=== PATIENT | female | born 1950 | race African-American/Black ===

== ENCOUNTER → 2020-01-28 | Outpatient (CLI) | payer OTHER | LOC: CAT 10:03 | DX: Z13.6 Encounter for screening for cardiovascular disorders (principal); E78.00 Pure hypercholesterolemia, unspecified; I25.10 Atherosclerotic heart disease of native coronary artery without angina pectoris ==

== ENCOUNTER → 2020-04-14 | Outpatient (CLI) | payer OTHER | LOC: BC 12:56 | DX: Z12.31 Encounter for screening mammogram for malignant neoplasm of breast (principal) ==

== ENCOUNTER → 2020-05-05 | Outpatient (CLI) | payer OTHER ==
[~2020-05-05] VITALS: Ht 157.5 cm; Wt 97.5 kg
[~2020-05-05] MED LIST: ASA81BEC PO; ATENOLOL 100MG100 MG PO; BLACK COHOSH40 M1 PO; CALCIUM 500 +1 EAC5 PO; CENTRUM SILVER1 EAC6 PO; CITRUCEL500 MG PO; FISH OIL 1,0001 EAC9 PO; HYDROCHLOROTHIA50 MG PO; LISINOPRIL10 MG PO; PROBIOTIC1 EAC4 PO; TRAMADOL 50 MG50 MG PO; TYLENOL EXTRA500 MG PO; VITAMIN B-125000 MCG SUBLING
--- NOTE | 2020-05-06 16:07 | PATH ---
Formerly [facility] [address] [place] [address] PATHOLOGY RPT PROCEDURE Name: PEBBLES SANON Room #: REG BECK Marcelo.#: [id number] Admission: 05/05/20 Date of : 52 Discharge: Report #: [id number] Path Case #: [id number] [facility] Accession Number: [id number] . 01 Material submitted: . PART A: cecum - CECAL POLYP PART B: hepatic flexure - HEPATIC FLEXURE POLYP . 01 Clinical history: . History of polyps . 02 Diagnosis: A. Polyp, cecal polyp, endoscopic biopsy: - Tubular adenoma. - Negative for high-grade dysplasia. . B. Polyp, hepatic flexure polyp, endoscopic biopsy: - Lymphoid aggregate and hyperplastic changes. - Negative for dysplasia. (IUV:danielle; 05/06/2020) QMS 05/06/2020 1311 Local . 02 Electronically signed: . Tigist Shields MD, Pathologist NPI- [id number] . 01 Gross description: . A. The specimen is received in formalin labeled "Pebbles Sanon, cecal polyp" and consists of a fragment of forbes tissue measuring 0.4 x 0.2 x 0.2 cm which is entirely submitted in A1. . B. The specimen is received in formalin labeled "Talita, Pebbles, hepatic flexure polyp" and consists of a fragment of pink-forbes tissue measuring 0.6 x 0.2 x 0.2 cm which is entirely submitted in B1. ([facility]; 05/05/2020) JFQ/JFQ 05/05/2020 1735 Local . 02 Pathologist provided ICD-10: D12.0, Z86.010 . 02 CPT . 504728, 172696 Specimen Comment: A courtesy copy of this report has been sent to [phone] Specimen Comment: [id number] Specimen Comment: Report sent to / DR BECKFORD Specimen Comment: A duplicate report has been [place] [address] PATHOLOGY RPT PROCEDURE Name: PEBBLES SANON Robyn Room #: REG BECK [place]#: [id number] Admission: 05/05/20 Date of : 52 Discharge: Report #: [id number] Path Case #: [id number] updates. Performed at: 01 [facility] [place], [place], [place] [id number] MD Bill Mendoza MD Phone: [phone] Performed at: [address] [id number] MD Tigist Shields MD Phone: [phone]
--- NOTE | 2020-05-08 09:14 | P ---
[facility] [place] [address] PROCEDURE REPORT Name: PEBBLES CORDOVA Room #: REG [facility]#: [id number] Admission: 05/05/20 Attend Phys: Ray Núñez MD Discharge: Date of : 52 Report #: [id number] THIS REPORT FOR: cc: Jacob Mares,Ray Poon MD ~ CC: Jacob Duvall OUTPATIENT COLONOSCOPY REPORT BRIEF HISTORY: The patient is a 70-year-old woman with a history of colon polyps. Last colonoscopy was 5 years ago. She reports a polyp was found at that time. PREOPERATIVE DIAGNOSIS: High risk screening colonoscopy due to history of colon polyps. POSTOPERATIVE DIAGNOSES: 1. Colon polyps. 2. Diverticulosis coli, right and left colon. 3. Small internal hemorrhoids. MEDICATIONS: Deep sedation with propofol per anesthesia. SPECIMENS: 1. Cecal polyp. 2. Hepatic flexure polyp. ESTIMATED BLOOD LOSS: 3 mL. PROCEDURE: Colonoscopy to cecum and ileocecal valve with biopsy. FINDINGS: Prior to propofol sedation, procedure of colonoscopy discussed with the patient as well as potential risks and its complications. She indicates she understands and desires to proceed. DESCRIPTION OF PROCEDURE: With the patient in left lateral decubitus position, digital examination was completed, which revealed no abnormalities. Subsequently, the Olympus video colonoscope was introduced into the rectum, advanced under direct vision to the cecum. Done with minimal difficulty. The cecum was identified by the ileocecal valve and the appendiceal orifice. The scope was advanced under direct vision to the cecum and ileocecal valve. I was able to identify the ileocecal valve and a villous pattern was seen on the mouth of the ileocecal valve, but due to looping of the scope, we could not cross the ileocecal valve. At that point, the scope was slowly withdrawn and careful [facility] [address] [place] [address] PROCEDURE REPORT Name: PEBBLES CORDOVA Room #: REG [facility].#: [id number] Admission: 05/05/20 Attend Phys: Ray Núñez MD Discharge: Date of : 52 Report #: [id number] circumferential views were obtained. Upon slow withdrawal of the scope, the prep was good. The mucosa was within normal limits, normal vascular pattern, normal light reflex. As we withdrew the scope, a diminutive polyp was seen in the cecum, removed with biopsy forceps. There were scattered diverticula including a couple in the cecum. At the hepatic flexure, another diminutive polyp was seen and removed with biopsy forceps. Scope was further withdrawn and no additional neoplastic changes were seen. There was a moderate amount of diverticular disease in the proximal colon. There was a moderate amount of diverticular disease in the left colon, in particular, the sigmoid colon. There was no endoscopic evidence of diverticulitis. The scope was withdrawn in the rectum and miniscule hemorrhoids were seen. Scope was withdrawn. The patient tolerated the procedure well. CONDITION OF THE PATIENT UPON DISCHARGE: Following procedure, the patient was drowsy, arousable and conversant and will be discharged home when fully ambulatory. INSTRUCTIONS TO THE PATIENT AND FAMILY AT THE TIME OF DISCHARGE: We will follow up on the pathology and make further recommendations. If one or both polyps are adenomas, she is to return in 5 years; if neither is an adenoma, then she return in 10 years. I would suggest high-fiber diet for her diverticular disease. Also, weight loss, potentially beneficial as obesity is a risk factor for colon neoplasms. She will return to the care of Dr. Mares and return to see me as needed. Withdrawal time from the cecum was 12 minutes 48 seconds. <ELECTRONICALLY SIGNED> By: Ray Núñez MD 05/08/20 0914 0836 1000 Ray Núñez MD /nt
== END | disposition home or self-care (01) ==
LOC: GI 06:52
PROVIDERS: ATTEND Specialist
DX: Z12.11 Encounter for screening for malignant neoplasm of colon (principal); Z86.010 Personal history of colon polyps; D12.0 Benign neoplasm of cecum; K57.30 Diverticulosis of large intestine without perforation or abscess without bleeding; K64.8 Other hemorrhoids; I10 Essential (primary) hypertension; G47.30 Sleep apnea, unspecified; M79.7 Fibromyalgia; Z98.890 Other specified postprocedural states; Z79.899 Other long term (current) drug therapy; Z87.891 Personal history of nicotine dependence; Z85.828 Personal history of other malignant neoplasm of skin; Z90.710 Acquired absence of both cervix and uterus
CPT/HCPCS: 62110; 62900

== ENCOUNTER → 2021-04-15 | Outpatient (CLI) | payer OTHER | LOC: BC 07:50 | PROVIDERS: ATTEND Family Medicine | DX: Z12.31 Encounter for screening mammogram for malignant neoplasm of breast (principal); N64.89 Other specified disorders of breast ==